=== PATIENT | female | born 1930 | race Caucasian/White ===

== ENCOUNTER 2017-10-13 20:03 | Emergency (ER) | payer OTHER ==
[~2017-10-13] VITALS: Ht 160 cm; Wt 52.2 kg
[~2017-10-13 20:03] MED LIST: ADALAT CC30 MG PO; AMLODIPINE BESY10 MG PO; AMLODIPINE BESYL5 MG PO; ASPIR 8181 M1 PO; ASPIRIN325 PO; CARVEDILOL25 MG PO; CIPRO500 MG PO; COLACE100 MG PO; COREG CR80 MG PO; CRESTOR10 MG PO; DIOVAN160 MG PO; FISH OIL 1,001000 M2 PO; FLAGYL500 MG PO; FOLIC ACID 40400 MCG PO; FOLIC ACID1 MG PO; HYDROCHLOROTHIA25 M1 PO; HYDROCODONE-AP1 EAC6 PO; HYZAAR 100-251 EACH PO; IBUPROFEN 200200 M1 PO; IRON325 PO; LEXAPRO 10 MG T10 M1 PO; LEXAPRO 10 MG T10 MG PO; LIPITOR 20 MG T20 M1 PO; NIFEDICAL XL60 MG PO; ONDANSETRON HCL4 M2 PO; PRILOSEC 20 MG20 MG PO; PRILOSEC40 MG PO; PROTONIX40 M1 PO; TAMIFLU75 MG PO
[2017-10-13 20:29] LABS: ABSOLUTE EOSINOPHILS 0.1 thou/uL (0.0-0.7); ABSOLUTE LYMPHOCYTES 1.2 thou/uL (0.8-5.3); ABSOLUTE MONOCYTES 0.6 thou/uL (0.0-1.2); ABSOLUTE NEUTROPHILS 2.4 thou/uL (1.6-8.1); BASOPHILS 0.4 %; EOSINOPHILS 1.6 %; HEMATOCRIT 44.2 % (37.0-47.0); LYMPHOCYTES 28.8 %; MCH 30.9 pg (26.0-34.0); MONOCYTES 13.6 %; MPV 8.7 fl. (7.2-11.1); NUCLEATED RBCS 0 /100WBC; PLATELET COUNT* 132 thou/uL (150-400); POLYS 55.6 %; RBC 4.86 mil/uL (4.20-5.00); RDW-CV 12.7 % (10.5-14.5); WBC 4.3 thou/uL (4.0-11.0)
[2017-10-13 20:36] LABS: ANION GAP 2 mmol/L (7-16); BUN 12 mg/dL (7-18); CALCIUM 8.7 mg/dL (8.5-10.1); CHLORIDE 104 mmol/L (98-107); CO2 34 mmol/L (21-32); CREATININE 0.6 mg/dL (0.6-1.3); GLUCOSE 91 mg/dL (70-99); POTASSIUM 3.4 mmol/L (3.5-5.1); SODIUM 140 mmol/L (136-145)
[2017-10-13 20:39] LABS: INR 1.1; PROTIME 10.8 Seconds (9.20-11.50)
[2017-10-13 20:46] LABS: ALBUMIN 3.2 g/dL (3.4-5.0); ALKALINE PHOSPHATASE 71 U/L (46-116); LIPASE 114 U/L (73-393); NT-PRO BRAIN NAT PEPTIDE 416 pg/mL (<300); SGOT 23 U/L (15-37); SGPT 19 U/L (30-65); TOTAL BILIRUBIN 0.4 mg/dL (<0.1-1.0); TOTAL PROTEIN 6.6 g/dL (6.4-8.2); TROPONIN-I LEVEL <0.06 ng/mL (<0.06)
[2017-10-13 21:31] LABS: URINE BILIRUBIN NEGATIVE (Negative); URINE BLOOD NEGATIVE (Negative); URINE CLARITY CLEAR; URINE COLOR YELLOW; URINE GLUCOSE-RANDOM NEGATIVE (Negative); URINE KETONES NEGATIVE (Negative); URINE LEUKOCYTES-REFLEX NEGATIVE (Negative); URINE NITRITE-REFLEX NEGATIVE (Negative); URINE PROTEIN NEGATIVE (Negative)
[2017-10-13] MEDS ORDERED: ZOFRAN ODT4 MG PO (22:01)
[2017-10-13 23:07] VITALS: BP 176/79
--- NOTE | 2017-10-14 10:25 | EKG ---
[place] [address] ELECTROCARDIOGRAM REPORT Name: PEGGY RO Room: [facility]#: [id number] Admission: 10/13/17 Attend Phys: Discharge: 10/13/17 Date of : [birth year] Report #: [id number] THIS REPORT FOR: //name// [facility] ED Test Date: 2017-10-13 Test Time: 20:10:27 Pat Name: PEGGY RO Department: Room: Gender: F Long Winder Tender: CHRISTIAN : 1930 Requested By: Christina Mattson Order Number: [id number] MD: Lester Reilyl Measurements Intervals [place] Rate: 76 P: 71 NC: 158 QRS: 66 QRSD: 96 T: -9 QT: 409 QTc: 460 Interpretive Statements Sinus rhythm Atrial premature complex Borderline T abnormalities, inferior leads Compared to ECG 08/21/2014 21:07:41 Atrial premature complex(es) now present T-wave abnormality now present Electronically Signed On 10-14-2017 10:24:58 CDT by Lester Reilly [email or web address] <ELECTRONICALLY SIGNED> By: Lester Reilly MD, FACC 10/14/17 1024 09 09 Lester Reilly MD, FAC /EPI
--- NOTE | 2017-10-14 16:00 | 24HR ---
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 Mean Heart Rate: 74 Total Beats: [id number] Maximum Heart Rate:104 @ 7:45am2 Tachycardia beats: 40 (>=100 BPM) 0% Minimum Heart Rate: 54 @ 3:45am3 Bradycardia beats: 0 (<= 50 BPM) 0% Pauses: 0 (> 2.5 sec.) Longest RR at: 1.489 seconds at 3:46am3 Brief less than 10 beats of PSVT, rate 121 No diary returned Impression 1. Brief PSVT, less than 20 beats 2. normal sinus rhythm 3.no cardiac pause Electronically Signed On 10-14-2017 16:00:39 CDT by Lester Reilly [email or web address] <ELECTRONICALLY SIGNED> By: Lester Reilly MD, FACC 10/14/17 1600 1132 113 Lester Reilly MD, FAC /EPI
== END 2017-10-13 23:26 | disposition home or self-care (01) ==
LOC: M.ERS 20:03
PROVIDERS: Emergency Medicine
DX: R11.0 Nausea (principal); E78.00 Pure hypercholesterolemia, unspecified; F32.9 Major depressive disorder, single episode, unspecified; I10 Essential (primary) hypertension; Z95.5 Presence of coronary angioplasty implant and graft; Z90.710 Acquired absence of both cervix and uterus; Z90.722 Acquired absence of ovaries, bilateral

== ENCOUNTER 2018-03-31 12:21 | Inpatient (IN) | payer OTHER ==
[2018-03-31] VITALS (7 sets, daily range): BP systolic 129–160; BP diastolic 67–90
[~2018-03-31] VITALS: Ht 160 cm; Wt 50.3 kg
--- NOTE | ~2018-03-31 | CON ---
[address] [address] CONSULTATION Name: PEGGY RO Room: [address] IN .R.#: [id number] Admission: 03/31/18 Attend Phys: Jerome Soto MD Discharge: Date of : [birth year] Report #: [id number] THIS REPORT FOR: //name// CC: Jerome Root CHIEF COMPLAINT: Chest pain. HISTORY OF PRESENT ILLNESS: The patient is an 87-year-old female who presented to the Emergency Room with chest discomfort symptoms, described as a bubble in her center of her chest. It occurred at rest. It had started mostly last night, but possibly the day before as well. Her presenting ECG demonstrated Q-waves across the anterior precordial leads with diffuse T-wave inversion and subtle ST segment depression. The patient denied palpitations, nausea, vomiting, or diaphoresis. She had some very mild shoulder pain, but she has chronic shoulder pain, so she really did not think very much of this. She has a history of fairly significant GI bleeding remotely and denies abdominal pain. Her hemoglobin level is normal. She denies edema or orthopnea. She has been short of breath with activity. She presents with rales. Her BNP is elevated. PAST MEDICAL HISTORY: There is a questionable history of coronary disease. She reports that she has never had any coronary procedures. Her brother, who takes care of her, also mentioned he does not think she has heart problem. She has a history of severe GI bleed, requiring more than 5 units of blood transfusion in 08/2014. Apparently, colonoscopy was performed at that time. She had an echocardiogram last year, which showed grossly normal LV systolic function. She had a Holter monitor placed for arrhythmia when she was diagnosed with a brief SVT of less than 20 beats, but underlying sinus rhythm. She has a history of frequent falling. She has to walk with a walker. Her brother says she has a neurologic abnormality, details not available. She has a hiatal hernia. PAST SURGICAL HISTORY: Prior hysterectomy, BSO, cholecystectomy. HOME MEDICATIONS: Include Zofran p.r.n. She otherwise takes no chronic medications. ALLERGIES: She denies any drug allergies. SOCIAL HISTORY: She is a nonsmoker. She does not drink. REVIEW OF SYSTEMS: [place] [address] CONSULTATION Name: ROPEGGY L Room: [address]#: [id number] Admission: 03/31/18 Attend Phys: Jerome Soto MD Discharge: Date of : [birth year] Report #: [id number] GASTROINTESTINAL: Denies hematemesis or melena. No abdominal pain. GENITOURINARY: No dysuria. Positive frequency. No fevers or chills. PULMONARY: No wheezing. Positive shortness of breath, no cough. CARDIOVASCULAR: Positive dyspnea with exertion. Positive shortness of breath. Positive chest discomfort. No palpitations. GENERAL: No fevers or chills. MUSCULOSKELETAL: Frequent falls. PHYSICAL EXAMINATION: VITAL SIGNS: She presents with blood pressure 150s/80s and O2 sat on 2 liters of 100%, heart rate is 97. GENERAL: This is a thin, cachectic-appearing elderly female. She is alert, no apparent distress. HEENT: Face: There is no evidence of trauma. Throat: Tongue is midline. NECK: Supple. There is no jugular venous distention. CARDIOVASCULAR: Regular. There is faint systolic murmur. LUNGS: Coarse breath sounds with rales in the bases. ABDOMEN: Nontender. EXTREMITIES: There is no peripheral edema noted. NEUROLOGIC: There are no deficits. LABORATORY DATA: Her ECG demonstrates a sinus rhythm with heart rate 98, diffuse T-wave inversion in the inferior and lateral precordial leads with ST segment depression and no ST segment elevation. There are Q-waves in the anterior precordial leads through V5. Her hemoglobin is 16.6; white blood count is 11.7; platelet count is 157,000. Sodium is 139, potassium is 3.9, chloride is 102, CO2 is 27, BUN is 2, creatinine is 0.9. Troponin I is 6.54, 7.93. NT-proBNP 1552. Chest x-ray shows flattened diaphragms, mild cardiomegaly, mild cephalization of infiltrates. IMPRESSION AND PLAN: 1. Non-ST elevation myocardial infarction. She presents with Q-waves in her anterior precordial leads and I am concerned she may have completed her infarct. I will order an echocardiogram to assess LV function. At this point in time, given her history of major gastrointestinal bleeding, I would proceed with conservative therapy unless she should develop angina. Upon my initial evaluation, the patient does not seem to be a good candidate for invasive evaluation because of her advanced age and severe bleeding risk for major gastrointestinal bleeding. 2. Acute systolic congestive heart failure. She received 40 mg of IV Lasix in the Emergency Room. We will repeat this therapy in the morning. 3. Mild hypertension. We will place her on beta blockers and an ARB. 4. History of gastrointestinal bleeding, I would like to place her on aspirin [address] [address] CONSULTATION Name: PEGGY RO Narcisa Room: [address] IN [facility]#: [id number] Admission: 03/31/18 Attend Phys: Jerome Soto MD Discharge: Date of : [birth year] Report #: [id number] and heparin and we will closely monitor for any bleeding. I did not place her on Plavix or more aggressive therapy at this time. By: 1520 [id number] Reilly MD, [facility] /nt
[~2018-03-31 12:21] MED LIST changes: +ZOFRAN ODT4 MG PO
[2018-03-31] MEDS ORDERED: IMDUR 30 MG TAB30 M1 PO (12:27)
[2018-03-31 12:57] LABS: HEMATOCRIT 48.6 % (37.0-47.0); HEMOGLOBIN 16.6 gm/dL (12.0-15.0); MCH 31.2 pg (26.0-34.0); MCHC 34.1 g/dL (28.0-37.0); MCV 91.5 fL (80.0-100.0); MPV 9.4 fl. (7.2-11.1); NUCLEATED RBCS 0 /100WBC; PLATELET COUNT* 157 thou/uL (150-400); RBC 5.31 mil/uL (4.20-5.00); RDW-CV 13.4 % (10.5-14.5); WBC 11.7 thou/uL (4.0-11.0)
[2018-03-31 13:16] LABS: ABSOLUTE LYMPHOCYTES 0.4 thou/uL (0.8-5.3); ABSOLUTE MONOCYTES 0.5 thou/uL (0.0-1.2); ABSOLUTE NEUTROPHILS 10.9 thou/uL (1.6-8.1); INR 1.1; PLATELET ESTIMATE ADEQUATE; PROTIME 11.5 Seconds (9.20-11.50)
[2018-03-31 13:17] LABS: ANISOCYTOSIS 1+; POIKILOCYTOSIS 1+
[2018-03-31 13:28] LABS: ANION GAP 10 mmol/L (7-16); CHLORIDE 102 mmol/L (98-107); CO2 27 mmol/L (21-32); CREATININE 0.9 mg/dL (0.6-1.3); GLUCOSE 148 mg/dL (70-99); POTASSIUM 3.9 mmol/L (3.5-5.1); SODIUM 139 mmol/L (136-145)
[2018-03-31 13:39] LABS: ALBUMIN 3.2 g/dL (3.4-5.0); ALKALINE PHOSPHATASE 66 U/L (46-116); BUN 2 mg/dL (7-18); LIPASE 65 U/L (73-393); NT-PRO BRAIN NAT PEPTIDE 15502 pg/mL (<300); SGOT 83 U/L (15-37); SGPT 27 U/L (30-65); TOTAL BILIRUBIN 0.5 mg/dL (<0.1-1.0); TOTAL PROTEIN 7.3 g/dL (6.4-8.2)
[2018-03-31 13:41] LABS: CALCIUM < 5.0 mg/dL (8.5-10.1); TROPONIN-I LEVEL 7.93 ng/mL (<0.06)
--- NOTE | 2018-03-31 15:24 | EKG ---
[place] [address] ELECTROCARDIOGRAM REPORT Name: PEGGY RO Room: [place] [address] ADM IN [facility]#: [id number] Admission: 03/31/18 Attend Phys: Jerome Soto MD Discharge: Date of : [birth year] Report #: [id number] THIS REPORT FOR: //name// [facility] ED Test Date: 2018-03-31 Test Time: 12:30:06 Pat Name: PEGGY RO Department: Room: [facility] Gender: F [employer] Of [employer]: EMS STUD : 1930 Requested By: Lidia Soler Order Number: [id number] MD: Lester Reilly Measurements Intervals [place] Rate: 98 P: 77 ME: 141 QRS: 59 QRSD: 89 T: 250 QT: 409 QTc: 523 Interpretive Statements Sinus rhythm Anteroseptal infarct, age indeterminate Abnormal T, probable ischemia, widespread Lateral leads are also involved Prolonged QT interval Compared to ECG 10/13/2017 20:10:27 Myocardial infarct finding now present Possible ischemia now present Prolonged QT interval now present Atrial premature complex(es) no longer present T-wave abnormality still present Electronically Signed On 03-31-2018 15:24:27 BUTCHER by Lester Reilly [email or web address] <ELECTRONICALLY SIGNED> By: Lester Reilly MD, [facility] 03/31/18 1524 1230 1230 Lester Reilly MD, [facility] /EPI
--- NOTE | 2018-03-31 16:19 | 2DMMODE ---
[place] [address] 2 D/M-MODE ECHOCARDIOGRAM Name: PEGGY RO Room: [address] [facility]#: [id number] Admission: 03/31/18 Attend Phys: Jerome Soto, Discharge: Date of : [birth year] Date of Service: 03/31/18 1618 Report #: [id number] THIS REPORT FOR: //name// APPROVED REPORT Study performed: 03/31/2018 15:20:18 EXAM: Comprehensive 2D, Doppler, and color-flow Echocardiogram Patient Location: In-Patient Room #: er Status: routine BSA: 1.53 HR: 64 bpm BP: 151/85 mmHg Rhythm: NSR Other Information Study Quality: Good Indications Acute WA 2D Dimensions IVSd: 8.68 (7-11mm) LVOT Diam: 18.42 (18-24mm) LVDd: 52.57 mm PWd: 8.54 (7-11mm) Ascending Ao: 28.39 (22-36mm) LVDs: 40.93 (25-40mm) Aortic Root: 27.82 mm Volumes Left Atrial Volume (Systole) LA ESV Index: 21.60 mL/m2 Aortic Valve AoV Peak Deon.: 1.25 m/s AO Peak Gr.: 6.28 mmHg LVOT Max P.00 mmHg AO Mean Gr.: 3.74 mmHg LVOT Mean P.27 mmHg LVOT Max V: 0.87 m/s AO V2 VTI: 20.52 cm LVOT Mean V: 0.51 m/s JUAREZ (VTI): 1.73 cm2 LVOT V1 VTI: 13.32 cm AI [place]: 3.21 m/s2 AI PHT: 358.64 ms Mitral Valve E/A Ratio: 0.68 [place] [address] 2 D/M-MODE ECHOCARDIOGRAM Name: PEGGY RO Room: [address] IN ..#: [id number] Admission: 03/31/18 Attend Phys: Jerome Soto, Discharge: Date of : [birth year] Date of Service: 03/31/18 1618 Report #: [id number] MV Decel. Time: 153.88 ms MV E Max Deon.: 0.64 m/s MV PHT: 44.62 ms MVA (PHT): 4.93 cm2 TDI E/Medial E': 9.14 Medial E' Deon.: 0.07 m/s Pulmonary Valve PV Peak Deon.: 0.75 m/s PV Peak Gr.: 2.22 mmHg Tricuspid Valve RAP Estimate: 5.00 mmHg TR Peak Gr.: 23.98 mmHg RVSP: 29.00 mmHg PA Pressure: 29.00 mmHg Left Ventricle The left ventricle is normal size. moderate apical hypokinesis noted There is normal left ventricular wall thickness. Left ventricular systolic function is mildly decreased. LVEF is 45-50% The left ventricular diastolic function is normal. Right Ventricle The right ventricle is normal size. The right ventricular systolic function is normal. Atria The left atrium size is normal. The right atrium size is normal. Aortic Valve Mild aortic valve sclerosis. Mild aortic regurgitation. There is no aortic valvular stenosis. Mitral Valve There is mitral annular calcification. There is no mitral valve regurgitation noted. No evidence of mitral valve stenosis. Tricuspid Valve The tricuspid valve is normal in structure. Mild tricuspid regurgitation. No pulmonary hypertension. Pulmonic Valve Pulmonic valve is not well visualized. There is no pulmonic [place] [address] 2 D/M-MODE ECHOCARDIOGRAM Name: PEGGY RO Room: [address] [place] [facility]#: [id number] Admission: 03/31/18 Attend Phys: Jerome Soto, Discharge: Date of : [birth year] Date of Service: 03/31/18 1618 Report #: [id number] Great Vessels The aortic root is normal in size. IVC is normal in size and collapses >50% with inspiration. Pericardium There is no pericardial effusion. <Conclusion> moderate apical hypokinesis noted LVEF is 45-50% Mild aortic valve sclerosis. Mild aortic regurgitation. <ELECTRONICALLY SIGNED> By: Nik Craven MD, FACC 03/31/18 1618 17 17 Nik Craven MD, FAC /INF
[2018-03-31] MEDS ORDERED: MELATONIN5 M4 PO (18:48)
[2018-03-31] MEDS ORDERED: ARICEPT10 M1 PO (18:49)
[2018-04-01] VITALS (7 sets, daily range): BP systolic 91–144; BP diastolic 39–62
--- NOTE | 2018-04-01 06:00 | NUR ---
patient progressing towards goals. continues on heparin gtt and nitro infusing. aptt therapeutic. denies chest pain. pt was able to sleep most of the night. no current concerns at this time. will contiue to monitor.
[2018-04-01 09:34] LABS: ABSOLUTE LYMPHOCYTES 1.1 thou/uL (0.8-5.3); ABSOLUTE MONOCYTES 0.8 thou/uL (0.0-1.2); ABSOLUTE NEUTROPHILS 7.3 thou/uL (1.6-8.1); BASOPHILS 0.2 %; EOSINOPHILS 0.4 %; HEMATOCRIT 48.2 % (37.0-47.0); HEMOGLOBIN 16.7 gm/dL (12.0-15.0); LYMPHOCYTES 11.9 %; MCH 31.6 pg (26.0-34.0); MCHC 34.8 g/dL (28.0-37.0); MCV 90.8 fL (80.0-100.0); MONOCYTES 8.3 %; NUCLEATED RBCS 0 /100WBC; PLATELET COUNT* 157 thou/uL (150-400); POLYS 79.2 %; RBC 5.31 mil/uL (4.20-5.00); RDW-CV 13.6 % (10.5-14.5); WBC 9.2 thou/uL (4.0-11.0)
[2018-04-01 09:45] LABS: CALCIUM 9.4 mg/dL (8.5-10.1); POTASSIUM 3.5 mmol/L (3.5-5.1)
--- NOTE | 2018-04-01 10:04 | NUR ---
PT APTT 67.4 AT 0915 THIS MORNING. PER PROTOCOL HEPARIN DRIP TO REMAIN AT 631 UNITS/HOUR. NO CHANGES.
--- NOTE | 2018-04-01 11:19 | NUR ---
PT TO ROOM 228 VIA WHEELCHAIR BY NURSING STAFF. HEPARIN AND NITRO DRIP D/C'D BEFORE TRANSFER. ASSESSMENT CHARTED. VSS. FAMILY AT THE BEDSIDE. REPORT GIVEN TO TELEMETRY NURSE.
--- NOTE | 2018-04-01 11:30 | NUR ---
PT ARRIVED TO UNIT VIA WC AND NURSING STAFF. FAMILY ACCOMPANIED PT TO ROOM ALSO. PT IS A&OX4, ABLE TO COMMUNICATE NEEDS TO STAFF. PT WITH LOW VISION HAS CALL LIGHT IN HAND AND ORIENTED TO SENSORY FEATURES OF CALL LIGHT. FREQUENT CHECKS FOR SAFETY AND PT NEEDS. ASSESSMENT COMPLETE, AGREE WITH DOCUMENTED ICU ASSESSMENT. VS OBTAINED. AMERICAN HISTORY PROFESSOR IN PLACE, SR. O2 SATS 98% ON ROOM AIR.
--- NOTE | 2018-04-01 11:48 | EKG ---
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 : 1930 Requested By: Lidia Soler Order Number: [id number] Reading MD: Lester Reilly Measurements Intervals [place] Rate: 87 P: 66 TN: 137 QRS: 43 QRSD: 92 T: 243 QT: 430 QTc: 518 Interpretive Statements Sinus rhythm Probable anteroseptal infarct, recent Abnormal T, probable ischemia, widespread Lateral leads are also involved Prolonged QT interval Compared to ECG 03/31/2018 12:30:06 No significant changes Electronically Signed On 04-01-2018 11:48:16 CAR SHAGGER by Lester Reilly [email or web address] <ELECTRONICALLY SIGNED> By: Lester Reilly MD, [facility] 04/01/18 1148 1352 1352 Lester Reilly MD, [facility] /EPI
[2018-04-02] VITALS: BP 103/37
[2018-04-02 04:00] VITALS: BP 103/38
[2018-04-02 04:44] LABS: HEMATOCRIT 42.2 % (37.0-47.0)
[2018-04-02 05:07] LABS: HEMOGLOBIN 14.6 gm/dL (12.0-15.0)
[2018-04-02 05:11] LABS: CALCIUM 8.9 mg/dL (8.5-10.1); CREATININE 0.9 mg/dL (0.6-1.3); POTASSIUM 3.2 mmol/L (3.5-5.1)
--- NOTE | 2018-04-02 06:52 | NUR ---
ASSUMED CAER OF PT AFTER REPORT AT 1930. PT A&OX4. VSS. PHYSICAL ASSESSMENT COMPLETED AND CHARTED. PT ON RA WITH 95% O2 SAT. PT TRACING SR/SB ON TELE. PT UP WITH 1 ASSIST TO BSC. PT C/O OF THROAT PAIN-PAIN MEDS GIVEN PER APR. PT REQUESTED FOR SLEEPING PILL- DR RAWLS INFORMED WITH NEW ORDER. PT RESTED WELL ON BED. CALL LIGHT WITHIN REACH.
[2018-04-02 08:10] VITALS: BP 128/39
--- NOTE | 2018-04-02 09:45 | NUR ---
REC'D REPORT FROM NOC RN, ASSUMED CARE OF PT APPROX 0730. A&OX4, ABLE TO COMMUNICATE NEEDS TO STAFF. USING CALL PROCTOR D/T LOW VISION. SCHOOL BUS INSPECTOR IN PLACE, SR. O2 SAT 98% RA. ASSESSMENT COMPLETE, VS OBTAINED. CALL LIGHT WITHIN REACH. HOURLY ROUNDING FOR SAFETY AND PT NEEDS.
[2018-04-02 11:39] VITALS: BP 123/61
--- NOTE | 2018-04-02 12:27 | EKG ---
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: : 1930 Requested By: Jerome [place]oto Order Number: [id number] Reading MD: Lester Reilly Measurements Intervals [place] Rate: 65 P: 58 CO: 142 QRS: 29 QRSD: 94 T: 225 QT: 544 QTc: 566 Interpretive Statements Sinus rhythm Probable anterior infarct, age indeterminate Abnormal T, probable ischemia, widespread Lateral leads are also involved Prolonged QT interval Compared to ECG 03/31/2018 13:52:39 No significant changes Electronically Signed On 04-02-2018 12:26:52 POOL LIFEGUARD by Lester Reilly [email or web address] <ELECTRONICALLY SIGNED> By: Lester Reilly MD, FAC 04/02/18 1226 4 Lester Reilly MD, FAC /EPI
[2018-04-02 13:17] LABS: CALCIUM 9.1 mg/dL (8.5-10.1); CREATININE 0.9 mg/dL (0.6-1.3); MAGNESIUM 2.1 mg/dL (1.8-2.4); POTASSIUM 3.5 mmol/L (3.5-5.1)
[2018-04-02 15:45] VITALS: BP 115/49
[2018-04-03] VITALS (9 sets, daily range): BP systolic 95–163; BP diastolic 32–80
--- NOTE | 2018-04-03 09:35 | NUR ---
ASSUMED CARE OF PT THIS AM AROUND 0715- PACKAGE CLERK IN PLACE ORDERED, TRACING SB THIS AM- UPON ASSESSMENT PT NOTED TO BE RESTING IN BED- PT A&O X4- CONTINENT OF BOWEL AND BLADDER- ASSIST X1 WITH TRANSFERS- LCTA, DIMINISHED IN BASES- VSS, O2 SAT 96% ON RA-ABD SOFT/ROUND/NON-TENDER, BS X4 QUADS- LAST BM REPORTED 03/31/18- IV NOTED TO LEFT FA AND RIGHT HAND INTACT AND SL- GOOD PO INTAKE NOTED THIS AM WITH BREAKFAST- PT CONSULTED FOR STRENGTH AND ENDURANCE THIS AM PER - PT DENIES ANY C/O PAIN/DISCOMFORT AT THIS TIME- CALL LIGHT AND PERSONAL BELONGINGS WITH IN REACH- HOURLY ROUNDS IN PLACE R/T SAFETY/NEEDS- ALL NEEDS MET AT THIS TIME-WCTM
[2018-04-03] MEDS ORDERED: ASPIR 8181 MG PO (11:12)
[2018-04-03] MEDS ORDERED: CARVEDILOL3.125 MG PO (11:13)
[2018-04-03] MEDS ORDERED: LISINOPRIL5 MG PO (11:14)
[2018-04-03] MEDS ORDERED: LASIX 20 MG TAB20 MG PO (11:14)
--- NOTE | 2018-04-03 13:22 | NUR ---
SW met with pt and pt brother to complete initial assessment, introduce self, and SW role. Pt alert, oriented, talkative. Pt lives at home alone and pt brother lives about 3 miles away. Pt brother is supportive, provides transportation. Pt has a cane and a walker but does not use them very much. MARTINA discussed dc planning of possible HH services or even SNF if needed and then SW met with pt and pt brother again after Dr [place]oto recommendation of SNF. SW provided SNF list and discussed SNF options; pt had been to [facility] in the past and would prefer them again especially bc of location in [place]. SW to send referral to [facility]; MARTINA discussed with pt, pt brother and pt nurse that at least the OT eval will be pending as orders for OT was just entered today and that [employer] auth will need to be obtained as well...so dc date will be pending referral acceptance and auth. SW to continue to follow to assist with safe dc planning/SNF placement.
--- NOTE | 2018-04-03 16:08 | NUR ---
PT CURRENLTY RESTING IN BED, EYES CLOSED- YARD SPOTTER CONTINUED ORDERED, TRACING SR- IV'S TO LEFT FA AND RIGHT HAND INTACT AND SL- PT WORKING WITH THERAPIES PRESCIBED THIS SHIFT, TOLERATING WELL- D/C TO [employer] PLANNED PENDING INSURANCE AUTH-GOOD PO INTAKE NOTED THIS SHIFT WITH MEALS- ATORVASTAIN 20 MG Q HS STARTED PER CARDIOLOGY THIS SHIFT WELL NITRO PRN- PT UP TO BED SIDE CHAIR WITH MEALS- DENIES ANY C/O PAIN/DISCOMFORT AT THIS TIME- CALL LIGHT AND PERSONAL BELONGINGS WITH IN REACH- FREQUENT CHECKS IN PLACE R/T SAFETY/NEEDS- ALL NEEDS MET AT THIS TIME-WCTM
--- NOTE | 2018-04-04 01:32 | NUR ---
REICEVED REPORT AND ASSUMED CARE AT 1900. SPECIAL EFFECTS DESIGNER IN PLACE. BP ELEVATED, OTHER THAN THAT VITAL SIGNS ARE STABLE. PT IS UP WITH ASSIST X 1. PT DENIED ANY PAIN AT THIS TIME. PT WAS DOING OK UNTIL LITHOGRAPH PRESS FEEDER WENT INTO ROOM TO GET VITAL SIGNS AND PT REFUSED THEM STATING ITS TO LATE AND THAT WE ARE HOLDING HER PRISONER. I WENT INTO CHECK ON THE PT AND SHE STATED THAT SHE WANTED TO CALL HER BROTHER SO THAT HE COULD PICK HER UP AND SHE CAN GO HOME, SHE WAS GETTING OUT OF BED. PT IS PARTIALLY BLIND SO I STATED OK LAY DOWN SO I KNOW YOU ARE SAFE AND I WILL CALL YOUR BROTHER FOR YOU. SHE STARTED GETTING AGRESSIVE AND PULLED ALL OF HER LEADS OFF OF HER CHEST AND GOT OUT OF THE BED WITH HER WALKER AND STARTED WALKING OUT OF THE ROOM. PT KEPT TRYING TO GO INTO OTHER PTS ROOMS AND WHEN NURSE TRIED TO REDIRECT HER SHE TRIED TO HIT HER WITH THE WALKER. FINALLY GOT PT BACK INTO ROOM AND LAID HER DOWN WITH ALARM ON. I SENT MESSAGE TO DR ACID TANK CLEANER. CALLED FAMILY AND THEY CAME UP TO TALK TO PT. BEFORE FAMILY GOT HERE I WENT INTO HER ROOM TO SEE IF SHE WAS OK AND SHE HAD PULLED HER RIGHT HAND IV OUT AND THREW IT ON THE FLOOR. SO I CLEANED PT UP AND SHE PRETENDED LIKE SHE WAS ASLEEP THE WHOLE TIME WHILE WE WERE MOVING HER AND CHANGING LINENS AND PUTTING LEADS ON. FAMILY WALKED INTO ROOM WE WERE FINISHING UP AND SAID SOMETHING TO HER AND SHE OPENED HER EYES AND STARTED TALKING TO HER FAMILY MEMBER. PT IS NOW CALM AND RESTING IN HER ROOM WITH FAMILY IN THERE HOLDING HER HAND. ASSESSMENT COMPLETED, DISCUSSED PLAN OF CARE WITH PT AND FAMILY, THEY UNDERSTAND. BED LOCKED, ALARM ON AND CALL LIGHT WITHIN REACH. FALL PRECAUTIONS IN PLACE. HOURLY ROUNDING DONE AND ALL NEEDS MET. NURSING WILL CONTINUE TO MONITOR.
[2018-04-04 07:53] VITALS: BP 146/62
--- NOTE | 2018-04-04 09:12 | NUR ---
ASSUMED CARE OF PT THIS AM AROUND 0715- POWER SCREWDRIVER OPERATOR IN PLACE ORDERED, TRACING SR- UPON ASSESSMENT PT NOTED TO BE RESTING IN BED- PT A&O X2-3 WITH NOTED CONFUSSION- CONTINENT OF BOWEL AND BLADDER- LIMITED ASSIST X1 WITH TRANSFERS- LCTA, DIMINISHED IN BASES- RESP EVEN AND UN-LABORED- VSS, O2 SAT 93% ON RA- ABD SOFT/ROUND/NON-TENDER, BS X4 QUADS-IV NOTED TO RIGHT FA INTACT AND SL- SET UP WITH MEALS, GOOD PO INTAKE NOTED THIS AM WITH BREAKFAST- PT UP TO BED SIDE CHAIR WITH BREAKFAST THIS AM- DENIES ANY C/O PAIN/DISCOMFORT AT THIS TIME- CALL LIGHT AND PERSONAL BELONGINGS WITH IN REACH- BED/YONG ALARM IN PLACE R/T SAFETY/NEEDS- HOURLY ROUNDS IN PLACE R/T SAFETY/NEEDS- ALL NEEDS MET AT THIS TIME-WCTM
--- NOTE | 2018-04-04 10:12 | NUR ---
FAXED PT/OT NOTES TO [facility]
[2018-04-04 12:23] VITALS: BP 124/48
[2018-04-04 16:53] VITALS: BP 131/44
--- NOTE | 2018-04-04 17:29 | NUR ---
PT CURRENTLY RESTING IN BED SIDE CHAIR EATING DINNER- GOOD PO INTAKE NOTED THIS SHIFT WITH MEALS- QUALITATIVE RESEARCHER IN PLACE ORDERED, TRACING SR- IV NOTED TO LEFT FA INTACT, SL- PT WORKING WITH PT/OT PRESCRIBED, TOLERATING WELL- ARICEPT RESTARTED THIS SHIFT PER - PT DENIES ANY C/O PAIN/DISCOMFORT AT THIS TIME- CALL LIGHT AND PERSONAL BELONGINGS WITH IN REACH- BED/CHAIR ALARM IN PLACE AND WORKING FOR PT SAFETY/NEEDS- ALL NEEDS MET AT THIS TIME-HATM
[2018-04-04 19:30] VITALS: BP 146/53
--- NOTE | 2018-04-05 02:56 | NUR ---
RECIEVED REPORT AND ASSUMED CARE AT 1900. OPTICAL INSTRUMENT INSPECTOR IN PLACE. VITAL SIGNS ARE STABLE. PT DENIES ANY PAIN AT THIS TIME. PT REFUSED US TO GET VITALS FOR THE MIDNIGHT AND 4AM VITALS AND WANTED TO SLEEP. PT UP WITH STANDBY ASSIST WITH WALKER. ASSESSMENT COMPLETED, DISCUSSED PLAN OF CARE, PT UNDERSTANDS. BED LOCKED, ALARM ON AND CALL LIGHT WITHIN REACH. FALL PRECAUTIONS IN PLACE. HOURLY ROUNDING DONE AND ALL NEEDS MET. NURSING WILL CONTINUE TO MONITOR.
[2018-04-05 08:00] VITALS: BP 188/76
--- NOTE | 2018-04-05 10:32 | NUR ---
RECEIVED CALL FROM [facility], THEY HAVE INSURANCE AUTH AND CALL ACCEPT PT TODAY. SHE SET UP W/C VAN FOR 1230. CHART COPIED AND RN HAS NUMBER TO CALL REPORT. PT AND BROTHER AWARE, GAVE BROTHER PHONE NUMBER FOR [facility].
[2018-04-05 11:40] VITALS: BP 151/74
--- NOTE | 2018-04-05 12:31 | NUR ---
ASSUMED CARE OF PT THIS AM ASSESSED AND DOCUMENTED. SEE CHART. PT TRACING SB HR 59. SHE IS A&O X4 WITH NO C/O PAIN. PT IS AFEBRILE. SHE IS ON ROOM AIR WITH CLEAR LUNGS. PT D/C'T TO [facility]. ALL BELONGINGS PACKED UP AND LEFT WITH PT AND FACILITY FINANCIAL ASSISTANT. D/C'D IV AND CARDIAC MONITER. REPORT CALLED INTO MARKIA AT [facility] [phone].
== END 2018-04-05 12:50 | DRG 280 ==
LOC: M.ERS 12:21 → M.ICU 14:13 → M.TBA-ER 14:13 → M.2W 14:13 → M.ICU 16:22 → M.2W 04-01 11:25
PROVIDERS: Internal Medicine Cardiovascular Disease; Personal Emergency Response Attendant; ADMIT Internal Medicine
DX: I21.4 Non-ST elevation (NSTEMI) myocardial infarction (principal); I50.41 Acute combined systolic (congestive) and diastolic (congestive) heart failure; G93.40 Encephalopathy, unspecified; E78.00 Pure hypercholesterolemia, unspecified; E78.5 Hyperlipidemia, unspecified; E83.51 Hypocalcemia; I11.0 Hypertensive heart disease with heart failure; F03.90 Unspecified dementia, unspecified severity, without behavioral disturbance, psychotic disturbance, mood disturbance, and anxiety; F32.9 Major depressive disorder, single episode, unspecified; Z90.710 Acquired absence of both cervix and uterus; Z90.79 Acquired absence of other genital organ(s); Z90.722 Acquired absence of ovaries, bilateral; Z98.42 Cataract extraction status, left eye; Z98.41 Cataract extraction status, right eye; Z90.49 Acquired absence of other specified parts of digestive tract; Z95.5 Presence of coronary angioplasty implant and graft; Z82.49 Family history of ischemic heart disease and other diseases of the circulatory system

== ENCOUNTER 2018-09-16 16:21 | Inpatient (IN) | payer OTHER ==
[~2018-09-16] VITALS: Ht 154.9 cm; Wt 46.4 kg
[~2018-09-16 16:21] MED LIST changes: +ARICEPT10 M1 PO; +ASPIR 8181 MG PO; +CARVEDILOL3.125 MG PO; +IMDUR 30 MG TAB30 M1 PO; +LASIX 20 MG TAB20 MG PO; +LISINOPRIL5 MG PO; +MELATONIN5 M4 PO
[2018-09-16 16:23] VITALS: BP 204/81
--- NOTE | 2018-09-16 16:56 | NUR ---
CT COMPLEATED PATIENT RETURNED TO ED
[2018-09-16] MEDS ORDERED: HYDRALAZINE 2525 MG PO (17:10)
[2018-09-16] MEDS ORDERED: PAROXETINE HCL20 MG PO (17:10)
[2018-09-16] MEDS ORDERED: POTASSIUM20 PO (17:11)
[2018-09-16] MEDS ORDERED: CLARITIN10 MG PO (17:12)
[2018-09-16] MEDS ORDERED: COZAAR 25 MG TA25 M1 PO (17:12)
[2018-09-16 17:13] LABS: ABSOLUTE LYMPHOCYTES 0.9 thou/uL (0.8-5.3); ABSOLUTE MONOCYTES 0.3 thou/uL (0.0-1.2); ABSOLUTE NEUTROPHILS 2.9 thou/uL (1.6-8.1); BASOPHILS 0.5 %; EOSINOPHILS 0.8 %; HEMATOCRIT 41.7 % (37.0-47.0); HEMOGLOBIN 14.4 gm/dL (12.0-15.0); LYMPHOCYTES 21.7 %; MCH 30.9 pg (26.0-34.0); MCHC 34.5 g/dL (28.0-37.0); MCV 89.6 fL (80.0-100.0); MONOCYTES 7.9 %; MPV 8.6 fl. (7.2-11.1); NUCLEATED RBCS 0 /100WBC; PLATELET COUNT* 138 thou/uL (150-400); POLYS 69.1 %; RBC 4.66 mil/uL (4.20-5.00); RDW-CV 13.2 % (10.5-14.5); WBC 4.3 thou/uL (4.0-11.0)
[2018-09-16] MEDS ORDERED: COLACE100 MG PO (17:13)
[2018-09-16] MEDS ORDERED: MIRALAX17 GM PO (17:13)
[2018-09-16] MEDS ORDERED: MILK OF MA400 MG/5 M PO (17:13)
[2018-09-16] MEDS ORDERED: CATAPRES-TTS 20.2 MG TOP (17:15)
[2018-09-16 17:21] LABS: ANION GAP 6 mmol/L (7-16); BUN 12 mg/dL (7-18); CALCIUM 8.6 mg/dL (8.5-10.1); CHLORIDE 100 mmol/L (98-107); CO2 33 mmol/L (21-32); CREATININE 0.6 mg/dL (0.6-1.3); GLUCOSE 114 mg/dL (70-99); POTASSIUM 3.6 mmol/L (3.5-5.1); SODIUM 139 mmol/L (136-145)
[2018-09-16 17:23] LABS: APTT 26.8 Seconds (25.0-31.3); INR 1.1; PROTIME 11.1 Seconds (9.20-11.50)
[2018-09-16 17:37] LABS: ALBUMIN 2.9 g/dL (3.4-5.0); ALKALINE PHOSPHATASE 64 U/L (46-116); MAGNESIUM 1.9 mg/dL (1.8-2.4); NT-PRO BRAIN NAT PEPTIDE 1585 pg/mL (<300); SGOT 17 U/L (15-37); SGPT 18 U/L (30-65); TOTAL BILIRUBIN 0.5 mg/dL (<0.1-1.0); TOTAL PROTEIN 6.5 g/dL (6.4-8.2); TROPONIN-I LEVEL <0.06 ng/mL (<0.06)
[2018-09-16 18:19] LABS: URINE BILIRUBIN NEGATIVE (Negative); URINE BLOOD NEGATIVE (Negative); URINE CLARITY CLEAR; URINE COLOR YELLOW; URINE GLUCOSE-RANDOM NEGATIVE (Negative); URINE KETONES NEGATIVE (Negative); URINE LEUKOCYTES-REFLEX TRACE (Negative); URINE NITRITE-REFLEX NEGATIVE (Negative); URINE PROTEIN TRACE (Negative)
[2018-09-16 18:27] LABS: BACTERIA-REFLEX >30 Many /HPF (None Seen); CASTS None Seen /LPF (None Seen); CRYSTALS None Seen /LPF (None Seen); SQUAMOUS 0-3 Few /LPF (0-3); URINE RBC 0-2 Rare /HPF (0-2)
[2018-09-16 18:46] LABS: BE 6.4 mmol/L (-2 to +3); PCO2 49.5 mmHg (35.0-45.0); PO2 112.5 mmHg (75.0-100.0); pH 7.429 (7.340-7.450)
[2018-09-16 20:23] VITALS: BP 153/60
[2018-09-16 20:53] VITALS: BP 154/62
[2018-09-16] MEDS ORDERED: COREG6.25 MG PO (22:10)
[2018-09-16] MEDS ORDERED: CATAPRESS3 TRANSDERM (22:13)
[2018-09-17 00:10] VITALS: BP 132/44
[2018-09-17 03:49] VITALS: BP 147/55
[2018-09-17 04:51] LABS: HEMATOCRIT 38.5 % (37.0-47.0); HEMOGLOBIN 12.8 gm/dL (12.0-15.0); MCH 30.2 pg (26.0-34.0); MCHC 33.3 g/dL (28.0-37.0); MCV 90.8 fL (80.0-100.0); MPV 9.1 fl. (7.2-11.1); RBC 4.24 mil/uL (4.20-5.00); RDW-CV 13.1 % (10.5-14.5); WBC 3.9 thou/uL (4.0-11.0)
[2018-09-17 04:57] LABS: CALCIUM 8.7 mg/dL (8.5-10.1); CREATININE 0.6 mg/dL (0.6-1.3); MAGNESIUM 2.1 mg/dL (1.8-2.4); POTASSIUM 3.4 mmol/L (3.5-5.1)
--- NOTE | 2018-09-17 06:12 | NUR ---
PT ADMITTED TO ROOM 204 DURING THIS SHIFT; VSS, A+OX4, 2L O2 NC, UP SBA, VERY WEAK, BED ALARM ON. SHE IS ABLE TO COMMUNICATE HER NEEDS TO STAFF EFFECTIVELY. SHE HAS DENIED THE NEED FOR PAIN MEDICATION UP TO THIS TIME. NEUROLOGY CONSULTED.
[2018-09-17 07:50] VITALS: BP 155/56
[2018-09-17 11:56] VITALS: BP 134/53
--- NOTE | 2018-09-17 14:30 | NUR ---
RECEIVED REPORT AND ASSUMED CARE AT 0700. VSS. CARDIAC MONITORING IN PLACE. PT DENIES COMPLAINTS OF PAIN. ASSESSMENT COMPLETED CHARTED. MEDICATION ADMIN PER ORDERS. PT UP WITH ASSIST, ON 2L NC. BED LOCKED IN LOWEST POSITION, CALL LIGHT WITHIN REACH, BED ALARM ON.
[2018-09-17 15:57] VITALS: BP 148/52
[2018-09-17 19:30] VITALS: BP 140/48
[2018-09-18] VITALS: BP 151/49; BP 203/79
--- NOTE | 2018-09-18 02:46 | NUR ---
ASSUMED CARE OF PT AT 1900. PT IS CONFUSED BUT VERY PLEASANT. VSS. PERRLA. NO COMPLAINTS OF PAIN. PT IS IN SINUS RYTHM ON THE TELEMETRY. PT IS RESTING COMFORTABLY INB BED. RESPIRATIONS ARE EVEN AND NONLABORED. WILL CONTIUE TO MONITOR PT.
[2018-09-18 04:00] VITALS: BP 178/54; BP 182/46
--- NOTE | 2018-09-18 05:40 | NUR ---
ASSUMED CARE OF PT AFTER REPORT AT 0400 FROM LEENA FIGUEROA. PT A&OX2. VSS. PT TRACING SR/SB/SA ON TELE. PT ABLE TO SLEEP WELL ON BED. DENIES ANY PAIN OR DISCOMFORT. CALL LIGHT WITHIN REACH.
[2018-09-18 08:00] VITALS: BP 163/80
--- NOTE | 2018-09-18 08:00 | NUR ---
ASSUMED PT CARE AT 0700, PT A&O TO SELF AND SITUATION, VSS, RA, UP WITH ASSIST X1 AND WALKER, AD COMPOSITOR TRACING SINUS RHYTHM TO SINUS ANALI, FULL ASSESSMENT CHARTED. PT TO HAVE MRI AND ECHO TODAY, WILL CONT POC.
--- NOTE | 2018-09-18 14:02 | NUR ---
Pt out of room, spoke with sister. Pt is a LTC resident at [facility], confirmed with Emma in admissions, that Pt can return at dc. Pt is [place] bound, per sister, Pt can transfer with assistance. Spoke with , anticipate dc within the next few days. Following. AMY [phone] f:[phone]
[2018-09-18] MEDS ORDERED: REMEDY PHYTOPL113 GM TOP (15:08)
--- NOTE | 2018-09-18 15:12 | 2DMMODE ---
[place] [address] 2 D/M-MODE ECHOCARDIOGRAM Name: PEGGY RO Room: [address] IN .R.#: [id number] Admission: 09/16/18 Attend Phys: Pauline Duran, Discharge: Date of : [birth year] Date of Service: 09/18/18 1512 Report #: [id number] THIS REPORT FOR: //name// APPROVED REPORT Study performed: 09/18/2018 10:28:54 EXAM: Comprehensive 2D, Doppler, and color-flow Echocardiogram Patient Location: Bedside BSA: 1.44 HR: 62 bpm BP: 163/80 mmHg Other Information Study Quality: Fair Indications CVA/TIA Echo Enhancing Agent Indication: Rule out Shunt Agent(s) / Amount(s) Used: Agitated Saline cc 2D Dimensions IVSd: 12.04 (7-11mm) LVOT Diam: 18.12 (18-24mm) LVDd: 42.48 mm PWd: 11.20 (7-11mm) Ascending Ao: 26.27 (22-36mm) LVDs: 29.41 (25-40mm) Aortic Root: 23.80 mm Volumes Left Atrial Volume (Systole) LA ESV Index: 26.80 mL/m2 Aortic Valve AoV Peak Deon.: 0.95 m/s AO Peak Gr.: 3.57 mmHg LVOT Max P.48 mmHg AO Mean Gr.: 1.71 mmHg LVOT Mean P.88 mmHg LVOT Max V: 0.93 m/s AO V2 VTI: 16.97 cm LVOT Mean V: 0.64 m/s JUAREZ (VTI): 2.92 cm2 LVOT V1 VTI: 19.24 cm AI [place]: 1.21 m/s2 AI PHT: 587.99 [place] [address] 2 D/M-MODE ECHOCARDIOGRAM Name: PEGGY RO Room: [address] IN .R.#: [id number] Admission: 09/16/18 Attend Phys: Pauline Duran, Discharge: Date of : [birth year] Date of Service: 09/18/18 1512 Report #: [id number] Mitral Valve E/A Ratio: 0.94 MV Decel. Time: 240.35 ms MV E Max Deon.: 0.87 m/s MV PHT: 69.70 ms MVA (PHT): 3.16 cm2 TDI E/Lateral E': 29.00 E/Medial E': 17.40 Medial E' Deon.: 0.05 m/s Lateral E' Deon.: 0.03 m/s Pulmonary Valve PV Peak Deon.: 0.91 m/s PV Peak Gr.: 3.35 mmHg Left Ventricle The left ventricle is normal size. There is normal LV segmental wall motion. Mild concentric left ventricular hypertrophy. Left ventricular systolic function is normal. The left ventricular ejection fraction is within the normal range. LVEF is 60-65%. Grade I - abnormal relaxation pattern. Right Ventricle The right ventricle is normal size. The right ventricular systolic function is normal. Atria The left atrium size is normal. Injection of bubbles documented no interatrial shunt. The right atrium size is normal. Aortic Valve The Aortic valve is sclerotic. Mild aortic regurgitation. There is no aortic valvular stenosis. Mitral Valve There is mitral annular calcification. There is no mitral valve regurgitation noted. No evidence of mitral valve stenosis. Tricuspid Valve The tricuspid valve is normal in structure. There is no tricuspid valve regurgitation noted. Pulmonic Valve The pulmonary valve is normal in structure. There is no pulmonic [place] [address] 2 D/M-MODE ECHOCARDIOGRAM Name: PEGGY RO Room: [address] IN [facility]#: [id number] Admission: 09/16/18 Attend Phys: Pauline Duran, Discharge: Date of : [birth year] Date of Service: 09/18/18 1512 Report #: [id number] Great Vessels The aortic root is normal in size. IVC is normal in size and collapses >50% with inspiration. Pericardium There is no pericardial effusion. <Conclusion> The left ventricle is normal size. Left ventricular systolic function is normal. The left ventricular ejection fraction is within the normal range. LVEF is 60-65%. Grade I - abnormal relaxation pattern. The right ventricle is normal size. The left atrium size is normal. The Aortic valve is sclerotic. Mild aortic regurgitation. There is no aortic valvular stenosis. There is mitral annular calcification. There is no mitral valve regurgitation noted. No evidence of mitral valve stenosis. The tricuspid valve is normal in structure. There is no pericardial effusion. There is normal LV segmental wall motion. <ELECTRONICALLY SIGNED> By: Jairo Mcfadden MD, FACC 09/18/18 151 11 11 Jairo Mcfadden MD, FACC /INF
[2018-09-18 15:51] VITALS: BP 162/52
--- NOTE | 2018-09-18 16:20 | NUR ---
I have reviewed the documentation by CESAR HERNANDEZ from TODAY to 09/18/18 and I concur with it. SALVADOR OCHOA
--- NOTE | 2018-09-18 16:53 | EKG ---
[place] [address] ELECTROCARDIOGRAM REPORT Name: PEGGY RO Room: [address] ADM IN [facility].#: [id number] Admission: 09/16/18 Attend Phys: Pauline Duran MD Discharge: Date of : [birth year] Report #: [id number] THIS REPORT FOR: //name// [facility] ED Test Date: 2018-09-16 Test Time: 16:35:38 Pat Name: PEGGY RO Department: Room: [facility] Gender: F Charge Weigher: : 1930 Requested By: Duyen Castillo Order Number: [id number] MD: Dusty Bah Measurements Intervals Berkley Rate: 64 P: 71 AK: 143 QRS: 56 QRSD: 87 T: -73 QT: 641 QTc: 662 Interpretive Statements Sinus rhythm Probable anteroseptal infarct, old Borderline T abnormalities, inferior leads Prolonged QT interval Compared to ECG 04/02/2018 09:15:55 Possible ischemia no longer present Myocardial infarct finding still present T-wave abnormality still present Electronically Signed On 09-18-2018 16:53:31 CDT by Dusty Bah [email or web address] <ELECTRONICALLY SIGNED> By: Dusty Bah MD, FACC 09/18/18 1653 1635 1635 Dusty Bah MD, FACC /EPI
--- NOTE | 2018-09-18 17:28 | NUR ---
PT A&O X2-3, CALL LIGHT IN REACH, UP FOR ALL MEALS. ECHO AND MRI COMPLETED, RESULTS CHARTED. PT DENIES ANY PAIN OR SOA, UP WITH PT/OT, PT TOLERATED WELL. Q 2 HOUR TURNS AND HOURLY ROUNDING COMPLETED.
[2018-09-18 19:45] VITALS: BP 128/67; BP 151/45
[2018-09-19] VITALS (7 sets, daily range): BP systolic 146–222; BP diastolic 59–78
--- NOTE | 2018-09-19 03:38 | NUR ---
ASSUMED CARE OF PT AT 1900. PT IS CONFUSED TO SITUATION. VSS. PERRLA. NO COMPLAINTS OF PAIN. PT IS IN SINUS RYTHM ON THE TELEMETRY. PT IS RESTING COMFORTABLY IN BED. RESPIRATIONS ARE EVEN AND NONLABORED. WILL CONTINUE TO MONITOR PT.
--- NOTE | 2018-09-19 07:47 | NUR ---
CM faxed referral to [facility] and asked that they initiate insurance auth, anticipate that Pt will be ready to dc back to [facility] tomorrow per
--- NOTE | 2018-09-19 08:00 | NUR ---
Assumed cares for this pt after report at 7am. VVS, assessment performed and charted. meds given per DO. Pt denies pain or discomfort, pt a/os x 3. monitored on tele - SR charted.
--- NOTE | 2018-09-19 15:39 | NUR ---
I have reviewed the documentation by CESAR HERNANDEZ from TODAY to 09/19/18 and I concur with it. SALVADOR OCHOA
--- NOTE | 2018-09-19 17:12 | NUR ---
PT UP FOR ALL MEALS, MRI COMPLTED, TELE-PSYCH CONSUL, NEW ORDERS PENDING, PT DENIES ANY PAIN OR DISCOMFORT THIS SHIFT. VVS CHARTED A/OX3, PT MONITORED ON TELE, SINUS RHYTHM DOCEMENTED IN CHART. REPOSITIONED Q2H, ROUNDS PERFORMED Q1H
[2018-09-20] VITALS (8 sets, daily range): BP systolic 136–218; BP diastolic 62–83
--- NOTE | 2018-09-20 07:10 | NUR ---
CHANGE OF SHIFT BEDSIDE REPORT GIVEN PATIENT SEEN AT BEDSIDE, IN BED ASLEEP ASSUMED CARE
--- NOTE | 2018-09-20 12:15 | NUR ---
Spoke with , anticipate dc tomorrow, Pt's BP is still elevated and tele psych recommended some med changes that will take place today. Updated Emma at [facility], ins auth will still be good tomorrow. Following.
[2018-09-20 15:08] LABS: ANA INTERPRETATION Negative (Negative)
[2018-09-21] VITALS: BP 162/56
[2018-09-21 04:00] VITALS: BP 169/69
--- NOTE | 2018-09-21 05:19 | NUR ---
ASSUMED CARE OF PT AFTER REPORT AT 1930. PT A&OX2. FOGETFUL. VSS. PHYSICAL ASSESSMEN COMPLETED AND CHARTED. PT ON RA. PT TRACING SB ON TELE. PT WITH EPISODES OF INCONTINENT BLADDER. PT DENIES ANY PAIN OR SOA. PT TURNED TO SIDES. CALL LIGHT WITHIN REACH.
[2018-09-21 08:00] VITALS: BP 188/51
[2018-09-21 08:52] VITALS: BP 188/51
[2018-09-21] MEDS ORDERED: MACROBID 100 M100 M2 PO (12:07)
[2018-09-21] MEDS ORDERED: HYDRALAZINE 2525 MG PO (12:07)
[2018-09-21] MEDS ORDERED: CELEXA20 MG PO (12:07)
--- NOTE | 2018-09-21 12:49 | NUR ---
VENDING MACHINE REFILLER INFORMED THAT THE PAT[facility]FOR[facility] OF PATIENT'S D/C, AND ARRANGED TRANSPORT FOR THE PATIENT FOR 1500. D/C APPRAISAL ANALYST FAXED PATIENT'S D/C ORDERS TO [facility]. D/C APPRAISAL ANALYST INFORMED THE RN IN-CHARGE OF THE PATIENT OF THE PATIENT'S TIME OF TRANSPORT AND WHERE TO CALL REPORT. RN IN AGREEMENT. CM WILL REMAIN AVAILABLE TO ASSIST AND FOLLOW NEEDED.
--- NOTE | 2018-09-21 15:25 | NUR ---
DISCHARGE NOTE - PT DISCHARGED TO [facility]. IV REMOVED WITHOUT DIFFICULTY. ALL BELONGINGS SENT WITH PT. CHART COPIED AND SENT WITH PT. REPORT CALLED AND SPOKE WITH HENRY BELLA. NO QUESTIONS.
== END 2018-09-21 15:25 | DRG 689 ==
LOC: M.ERS 16:21 → M.TBA-ER 18:43 → M.2W 18:43
PROVIDERS: Nurse Practitioner Family; Personal Emergency Response Attendant; Psychiatry & Neurology Neuromuscular Medicine; ADMIT Internal Medicine
DX: N39.0 Urinary tract infection, site not specified (principal); G92 Toxic encephalopathy; R65.11 Systemic inflammatory response syndrome (SIRS) of non-infectious origin with acute organ dysfunction; R47.01 Aphasia; E78.00 Pure hypercholesterolemia, unspecified; I10 Essential (primary) hypertension; F32.9 Major depressive disorder, single episode, unspecified; F03.90 Unspecified dementia, unspecified severity, without behavioral disturbance, psychotic disturbance, mood disturbance, and anxiety; D64.9 Anemia, unspecified; I25.10 Atherosclerotic heart disease of native coronary artery without angina pectoris; B96.1 Klebsiella pneumoniae [K. pneumoniae] as the cause of diseases classified elsewhere; Z90.722 Acquired absence of ovaries, bilateral; Z90.49 Acquired absence of other specified parts of digestive tract; Z90.710 Acquired absence of both cervix and uterus; Z98.42 Cataract extraction status, left eye; Z98.41 Cataract extraction status, right eye; Z95.5 Presence of coronary angioplasty implant and graft; Z86.73 Personal history of transient ischemic attack (TIA), and cerebral infarction without residual deficits; Z82.49 Family history of ischemic heart disease and other diseases of the circulatory system; Z79.82 Long term (current) use of aspirin; Z79.899 Other long term (current) drug therapy